=== PATIENT | male | born 1975 | race Caucasian/White ===

== ENCOUNTER 2017-07-11 18:06 | Emergency (ER) | payer MEDICAID ==
[~2017-07-11] VITALS: Ht 185.4 cm; Wt 86.6 kg
[2017-07-11] MEDS ORDERED: sulfamethoxazole/trimethoprim DS (800/160mg) tablet PO ONE (20:25)
[2017-07-11] MEDS ORDERED: cephalexin 250mg capsule PO ONE (20:25)
[2017-07-11] MEDS ORDERED: LIDOcaine 1.5% w/epinephrine 1:200,000 5ml ampul IJ ONE (20:25)
[2017-07-11] MEDS ORDERED: CEPH500C5 PO (20:59)
[2017-07-11] MEDS ORDERED: BACDS PO (20:59)
[2017-07-11] MEDS ORDERED: HYDROcodone/acetaminophen 5mg/325mg tablet PO ONE (21:00)
[2017-07-11] MEDS ORDERED: HYDR-3965 PO (21:00)
[2017-07-11 21:23] VITALS: BP 152/85
== END 2017-07-11 21:24 | disposition home or self-care (01) ==
LOC: ER 18:07
DX: L03.113 Cellulitis of right upper limb (principal); B95.62 Methicillin resistant Staphylococcus aureus infection as the cause of diseases classified elsewhere; Z88.8 Allergy status to other drugs, medicaments and biological substances; Z79.899 Other long term (current) drug therapy
CPT/HCPCS: 10060; 99284; A6266; A6446; A6449; J3490